=== PATIENT | male | born 1985 | race American Indian/Alaskan Native ===

== ENCOUNTER 2016-12-29 22:32 | Emergency (ER) | payer SELFPAY ==
[2016-12-29 22:33] VITALS: BMI 30.8
[2016-12-29 23:05] VITALS: BP 105/67; PULSE 66; RESP 20; TEMP 97.2; O2SAT 97
--- NOTE | 2016-12-29 23:06 | C.PDOC ---
History Of Present Illness 31 year old male presents to the ED with complaints of intermittent yellowish penile discharge and dysuria for two weeks. Patient states he went to a clinic one week ago to have STD testing performed which had negative results and symptoms persisted. He denies any back pain, vomiting, or diarrhea. Chief Complaint (Nursing): Male Genitourinary History Per: Patient History/Exam Limitations: no limitations Onset/Duration Of Symptoms: Persistent (2 weeks ) Current Symptoms Are (Timing): Still Present Quality Of Discomfort: "Pain" Associated Symptoms: Other (dysuria ). denies: Fever, Chills, Nausea, Vomiting , Diarrhea, Back Pain Recent travel outside of the [place]: No Past Medical History Reviewed: Historical Data, Nursing Documentation, Vital Signs Vital Signs: Last Vital Signs Temp 97.2 F L 12/29/16 23:02 Pulse 66 12/29/16 23:02 Resp 20 12/29/16 23:02 BP 105/67 12/29/16 23:02 Pulse Ox 97 12/30/16 00:44 Surgical History: Appendectomy Family History: States: Unknown Family Hx - Social History Hx Alcohol Use: No Hx Substance Use: Yes (marijuana) - Immunization History Hx Tetanus Toxoid Vaccination: No Hx Influenza Vaccination: No Hx Pneumococcal Vaccination: No Review Of Systems Constitutional: Negative for: Fever, Chills, Sweats Cardiovascular: Negative for: Chest Pain, Palpitations Respiratory: Negative for: Cough, Shortness of Breath Gastrointestinal: Negative for: Nausea, Vomiting, Abdominal Pain, Diarrhea Genitourinary: Positive for: Dysuria, Penile Discharge (yellowish penile discharge ) Musculoskeletal: Negative for: Back Pain Physical Exam - Physical Exam Appears: Non-toxic, No Acute Distress Skin: Warm, Dry Head: Atraumatic Oral Mucosa: Moist Neck: Supple Chest: Symmetrical, No Deformity Cardiovascular: Rhythm Regular Respiratory: No Rales, No Rhonchi, No Stridor, No Wheezing Gastrointestinal/Abdominal: Soft, No Tenderness, No Distention, No Guarding, No Rebound Extremity: Normal ROM, No Tenderness Neurological/Psych: Oriented x3 ED Course And Treatment O2 Sat by Pulse Oximetry: 97 (room air ) Medical Decision Making Medical Decision Making: pt to be treated for sti with outpatient clinic follow up, pt's partner has been treated as well. Disposition Counseled Patient/Family Regarding: Diagnosis, Need For Followup - Disposition Referrals: [facility] [Outside] [facility] [Outside] Disposition: HOME/ ROUTINE Disposition Time: :01 Condition: STABLE Additional Instructions: PLease follow up in clinic and get evaluated for sexually transmitted infections before any unprotected sex. Recommend safe protected sex only. Return to ER for any worse symptoms. Instructions: Nonspecific Urethritis in Men (ED) Forms: Work Excuse - Clinical Impression Clinical Impression: Urethritis, nonspecific - Scribe Statement The provider has reviewed the documentation as recorded by the Scribjailene Fontenot All medical record entries made by the Jasibjailene were at my direction and personally dictated by me. I have reviewed the chart and agree that the record accurately reflects my personal performance of the history, physical exam, medical decision making, and the department course for this patient. I have also personally directed, reviewed, and agree with the discharge instructions and disposition.
[2016-12-30] MEDS ORDERED: cefTRIAXone (Rocephin) 250 mg Inj IM STA (00:04)
[2016-12-30] MEDS ORDERED: Lidocaine Hydrochloride 5 ML INJ ONE (00:21)
[2016-12-30 00:36] LABS: RBC URINE 1 /hpf (0-3); URINE BILIRUBIN NEGATIVE (NEGATIVE); URINE BLOOD NEGATIVE (NEGATIVE); URINE COLOR Yellow (YELLOW); URINE GLUCOSE (UA) NORMAL (Normal); URINE KETONE NEGATIVE (NEGATIVE); URINE LEUKOCYTE ESTERASE 1+ Leu/uL (Negative); URINE PROTEIN NEGATIVE (NEGATIVE); URINE UROBILINOGEN NORMAL mg/dL (0.2-1.0); WBC URINE 56 /hpf (0-5)
== END 2016-12-30 01:07 | disposition home or self-care (01) ==
LOC: C.ER 22:32
DX: N34.2 Other urethritis (principal)
CPT/HCPCS: 81001; 87491; 87591; 96372; 99284; J0696